=== PATIENT | female | born 1980 | race Two or more races ===

== ENCOUNTER 2025-05-06 20:06 | Inpatient (IN) | payer MEDICAID ==
[~2025-05-06] VITALS: Ht 157.5 cm; Wt 64.4 kg
[2025-05-06 20:08] VITALS: O2SAT 99
[2025-05-06] MEDS: SODIUM CHLORIDE 0.9% 1,000 ML IV ONE (21:31)
[2025-05-06 22:33] LABS: HEMATOCRIT. 41.6 % (36.0-48.0); HEMOGLOBIN. 13.5 g/dL (12.0-16.0); MEAN PLATELET VOLUME 8.0 fl (7.4-10.4); PLATELET 322 x1000/uL (130-400); RED BLOOD CELL COUNT 4.99 mill/uL (4.2-5.4); RED CELL DISTRIBUTION WIDTH 13.8 % (11.6-14.6)
[2025-05-06 22:42] LABS: INR 1.0
[2025-05-06 23:01] LABS: HCG SCREEN NEGATIVE
[2025-05-06 23:34] LABS: BAND% 2.0 % (1.0-6.0); LYMPHOCYTES % MANUAL 3.0 % (20.0-60.0); MONOCYTES % MANUAL 2.0 % (2.0-8.0); NEUTROPHILS % MANUAL 93.0 % (45.0-75.0); PLATELET ESTIMATE NORMAL
[2025-05-07 00:20] LABS: CREATININE 0.7 mg/dL (0.6-1.0)
[2025-05-07 00:21] LABS: TROPONIN I HIGH SENSITIVITY 17 ng/L (3.0-34); UREA NITROGEN BLOOD 10 mg/dL (9-23)
[2025-05-07 00:22] LABS: ASPARTATE AMINOTRANSFERASE 77 IU/L (<34)
[2025-05-07 00:23] LABS: BILIRUBIN DIRECT < 0.1 mg/dL (<=3.0); BILIRUBIN TOTAL 0.4 mg/dL (0.1-1.0); PROTEIN TOTAL 7.2 g/dL (6.0-8.3)
[2025-05-07] MEDS: SODIUM CHLORIDE 0.9% 1,000 ML IV ONE (01:08)
[2025-05-07] MEDS ORDERED: ONDANSETRON HCL 4MG/2ML INJ IV PRN (02:00)
[2025-05-07] MEDS ORDERED: MAGNESIUM/ALUMINUM HYDROXIDE/SIMETHICONE 30ML UDC PO PRN (02:00)
[2025-05-07] MEDS ORDERED: ACETAMINOPHEN 325MG TABLET PO PRN ×2 (02:00)
[2025-05-07 04:00] VITALS: BP 135/85; PULSE 92; RESP 18; TEMP 35.9176
[2025-05-07] MEDS: MVI, ADULT NO.1 10 ML, FOLIC ACID 1 MG, THIAMINE HCL 100 MG in SODIUM CHLORIDE 0.9% 1,0... IV ONE (05:04)
[2025-05-07 08:00] VITALS: BP 131/82; PULSE 95; RESP 18; TEMP 36.4; O2SAT 98
[2025-05-07] MEDS: [UNRECOGNIZED DRUG - OTHER] IM ONE (09:00)
[2025-05-07 12:00] VITALS: BP 129/81; PULSE 108; RESP 19; TEMP 36.5; O2SAT 98
[2025-05-07 12:53] LABS: CLARITY URINE CLEAR (CLEAR); COLOR URINE YELLOW (YELLOW); GLUCOSE URINE NEGATIVE (NEGATIVE); KETONES URINE NEGATIVE (NEGATIVE); LEUKOCYTE ESTERASE URINE NEGATIVE (NEGATIVE); NITRITE URINE NEGATIVE (NEGATIVE); OCCULT BLOOD URINE NEGATIVE (NEGATIVE); PH URINE 6.0 (4.5-8.0); PROTEIN URINE NEGATIVE (NEGATIVE); SPECIFIC GRAVITY URINE 1.020 (1.005-1.030); UROBILINOGEN URINE 0.2 E.U./dL (0.2-1.0)
[2025-05-07 12:55] LABS: *AMPHETAMINES SCREEN URINE NEGATIVE (NEGATIVE); *BARBITURATES SCREEN URINE NEGATIVE (NEGATIVE); *BENZODIAZEPINES SCREEN URINE NEGATIVE (NEGATIVE); *COCAINE SCREEN URINE NEGATIVE (NEGATIVE); CANNABINOID URINE SCREEN NEGATIVE (NEGATIVE); ECSTASY MDMA SCREEN URINE NEGATIVE (NEGATIVE); METHADONE URINE SCREEN NEGATIVE (NEGATIVE); OPIATES URINE SCREEN NEGATIVE (NEGATIVE); PHENCYCLIDINE URINE SCREEN NEGATIVE (NEGATIVE)
[2025-05-07 16:00] VITALS: BP 142/78; PULSE 108; RESP 20; TEMP 38.1; O2SAT 98
[2025-05-07] MEDS: SODIUM CHLORIDE 0.9% 1,000 ML IV SCH (17:02)
[2025-05-07 20:00] VITALS: BP 134/79; PULSE 114; RESP 18; TEMP 36.3; O2SAT 99
[2025-05-08] VITALS: BP 127/79; PULSE 91; RESP 18; TEMP 36.4; O2SAT 99
[2025-05-08 04:00] VITALS: BP 148/86; PULSE 82; RESP 18; TEMP 36.4; O2SAT 98
[2025-05-08 06:55] LABS: BASOPHILS % 0.2 % (0.0-2.0); EOSINOPHILS % 1.0 % (0.0-5.0); HEMATOCRIT. 34.5 % (36.0-48.0); HEMOGLOBIN. 11.8 g/dL (12.0-16.0); LYMPHOCYTES % 30.0 % (20.0-50.0); MEAN PLATELET VOLUME 7.9 fl (7.4-10.4); MONOCYTES % 6.4 % (2.0-8.0); NEUTROPHILS % 62.4 % (40.0-76.0); PLATELET 241 x1000/uL (130-400); RED BLOOD CELL COUNT 4.18 mill/uL (4.2-5.4); RED CELL DISTRIBUTION WIDTH 14.1 % (11.6-14.6)
[2025-05-08 07:04] LABS: CREATININE 0.6 mg/dL (0.6-1.0); UREA NITROGEN BLOOD 9 mg/dL (9-23)
[2025-05-08 07:06] LABS: PHOSPHORUS 4.0 mg/dL (2.5-4.9)
[2025-05-08 08:00] VITALS: BP 131/78; PULSE 89; RESP 18; TEMP 36.6; O2SAT 100
[2025-05-08] MEDS: POTASSIUM CHLORIDE 20MEQ TABLET SR PO SCH (11:57)
[2025-05-08 12:00] VITALS: BP 133/79; PULSE 88; RESP 16; TEMP 36.4; O2SAT 100
[2025-05-08] MEDS: MAGNESIUM 2 G PREMIX 50 ML IV SCH (12:00)
[2025-05-08] MEDS: DIPHENHYDRAMINE 50MG/ML VIAL IV PRN (15:54)
[2025-05-08 16:00] VITALS: BP 137/83; PULSE 103; RESP 18; TEMP 36.3; O2SAT 100
[2025-05-09] VITALS: BP 122/78; PULSE 87; RESP 18; TEMP 36.1; O2SAT 100
[2025-05-09 04:00] VITALS: BP 134/81; PULSE 92; RESP 18; TEMP 36.2; O2SAT 100
[2025-05-09 08:00] VITALS: BP 133/85; PULSE 94; RESP 19; TEMP 35.9; O2SAT 100
[2025-05-09 12:00] VITALS: BP 126/81; PULSE 95; RESP 18; TEMP 37.2
[2025-05-09] MEDS: SERTRALINE HCL 25MG TABLET PO SCH (13:26)
[2025-05-09 16:00] VITALS: BP 132/79; PULSE 89; RESP 18; TEMP 36.2; O2SAT 100
[2025-05-09] MEDS ORDERED: RISP2 MT (16:25)
[2025-05-09 20:00] VITALS: BP 138/87; PULSE 92; RESP 18; TEMP 36.6; O2SAT 98
[2025-05-09] MEDS: RISPERIDONE 1MG TABLET PO SCH (21:43)
[2025-05-10] VITALS: BP 122/72; PULSE 87; RESP 19; TEMP 37.1; O2SAT 98
[2025-05-10 04:00] VITALS: BP 130/78; PULSE 89; RESP 18; TEMP 36.6; O2SAT 98
[2025-05-10 08:00] VITALS: BP 132/81; PULSE 92; RESP 18; TEMP 36.7
[2025-05-10 12:00] VITALS: BP 129/85; PULSE 97; RESP 18; TEMP 37.4; O2SAT 98
[2025-05-10 20:00] VITALS: BP 119/76; PULSE 99; RESP 19; TEMP 36.7; O2SAT 97
[2025-05-11] VITALS: BP 127/88; PULSE 90; RESP 19; TEMP 36.6; O2SAT 98
[2025-05-11 04:00] VITALS: BP 105/59; PULSE 86; RESP 19; TEMP 36.4; O2SAT 98
[2025-05-11 08:00] VITALS: BP 92/51; PULSE 82; RESP 17; TEMP 36; O2SAT 99
[2025-05-11 12:03] VITALS: BP 104/58; PULSE 86; RESP 18; TEMP 36.2; O2SAT 98
[2025-05-11 16:00] VITALS: BP 96/56; PULSE 92; RESP 17; TEMP 36.3; O2SAT 99
[2025-05-11 20:00] VITALS: BP 104/64; PULSE 88; RESP 19; TEMP 36.6; O2SAT 97
[2025-05-11] MEDS ORDERED: SERT-422 MT (22:11)
[2025-05-11] MEDS ORDERED: BUSP7.5T7 MT (22:11)
[2025-05-11] MEDS ORDERED: *PATIENT'S OWN MEDICATION STORAGE XX SCH (22:45)
[2025-05-12] VITALS: BP 110/70; PULSE 87; RESP 18; TEMP 36.9; O2SAT 98
[2025-05-12 04:00] VITALS: BP 105/56; PULSE 73; RESP 19; TEMP 37.1; O2SAT 97
[2025-05-12 08:00] VITALS: BP 90/54; PULSE 74; RESP 16; TEMP 36; O2SAT 98
[2025-05-12 12:00] VITALS: BP 103/54; PULSE 78; RESP 17; TEMP 36.2; O2SAT 99
[2025-05-12 16:00] VITALS: BP 108/66; PULSE 72; RESP 18; TEMP 36.2; O2SAT 98
[2025-05-12 20:00] VITALS: BP 97/73; PULSE 82; RESP 19; TEMP 36.6; O2SAT 97
[2025-05-13] VITALS: BP 105/70; PULSE 72; RESP 18; TEMP 36.2; O2SAT 99
[2025-05-13 04:00] VITALS: BP 107/66; RESP 16; TEMP 36.1; O2SAT 100
[2025-05-13 08:00] VITALS: BP 102/51; PULSE 77; RESP 18; TEMP 36.2; O2SAT 98
[2025-05-13 12:00] VITALS: BP 103/59; PULSE 81; RESP 18; TEMP 36.3; O2SAT 99
[2025-05-13 15:54] VITALS: BP 112/61; PULSE 96; RESP 20; TEMP 36.7; O2SAT 100
[2025-05-13 20:01] VITALS: BP 103/65; PULSE 84; RESP 18; TEMP 36; O2SAT 99
[2025-05-14] VITALS: BP 117/67; PULSE 77; RESP 18; TEMP 36.7; O2SAT 98
[2025-05-14 04:00] VITALS: BP 96/61; PULSE 74; RESP 19; TEMP 36.9; O2SAT 100
[2025-05-14 08:00] VITALS: BP 99/50; PULSE 79; RESP 18; TEMP 37; O2SAT 98
[2025-05-14 12:00] VITALS: BP 98/46; PULSE 88; RESP 18; TEMP 36.6; O2SAT 98
[2025-05-14 16:00] VITALS: BP 130/79; PULSE 99; RESP 18; TEMP 36.4; O2SAT 99
[2025-05-14 16:46] VITALS: BP 130/79; PULSE 99; RESP 18; TEMP 97.6
== END 2025-05-14 17:35 | disposition home or self-care (01) | DRG 52 ==
LOC: ER 20:06 → 7WST 05-07 01:16 → EDBEDREQ 05-07 01:35 → EDBEDREQTM 05-07 01:35 → ENRESERV 05-07 02:19 → 7EST 05-07 17:42
PROVIDERS: ADMIT Internal Medicine; ATTEND Internal Medicine
PROC: GZ56ZZZ Individual Psychotherapy, Supportive (ICD-10-PCS; principal; 2025-05-09)
DX: G93.41 Metabolic encephalopathy (principal); M62.82 Rhabdomyolysis; T48.1X1A Poisoning by skeletal muscle relaxants [neuromuscular blocking agents], accidental (unintentional), initial encounter; F29 Unspecified psychosis not due to a substance or known physiological condition; D72.829 Elevated white blood cell count, unspecified; E83.42 Hypomagnesemia; E87.6 Hypokalemia; F41.1 Generalized anxiety disorder; N18.9 Chronic kidney disease, unspecified; R65.10 Systemic inflammatory response syndrome (SIRS) of non-infectious origin without acute organ dysfunction; F32.9 Major depressive disorder, single episode, unspecified; Y92.89 Other specified places as the place of occurrence of the external cause
CPT/HCPCS: 36415; 80048; 80053; 80076; 80305; 80307; 80320; 80329; 81003; 82140; 82550; 83735; 84100; 84484; 84703; 85025; 90686; 93005; 96360; 96361; 97161; 97165; 99285; A4606; J1200; J3411; J3490; J7030; G0480